=== PATIENT | female | born 1970 | race American Indian/Alaskan Native ===

== ENCOUNTER 2017-04-01 08:46 | Outpatient (CLI) | payer BC ==
--- NOTE | 2017-04-01 15:30 | Mammography Report ---
BILATERAL DIGITAL SCREENING MAMMOGRAM with CAD: 04/01/17 08:46:00 CLINICAL: Routine screening. COMPARISON:None available. FINDINGS: The breasts are heterogeneously dense, which may obscure small masses. No mass, architectural distortion or suspicious calcifications. IMPRESSION: No mammographic evidence of malignancy. BI-RADS CATEGORY: 1 - - Negative RECOMMENDATION: Routine mammographic screening in one year. COMMENT: Patient follow-up letters are generated by our [employer] application.
== END 2017-04-01 08:47 | disposition home or self-care (01) ==
LOC: SPVWC 08:46
PROVIDERS: ATTEND Obstetrics & Gynecology
DX: Z12.31 Encounter for screening mammogram for malignant neoplasm of breast (principal)
CPT/HCPCS: 77067; G0202

== ENCOUNTER 2018-04-27 14:11 | Outpatient (CLI) | payer BC ==
--- NOTE | 2018-04-29 16:45 | Mammography Report ---
BILATERAL DIGITAL SCREENING MAMMOGRAM with CAD: 04/27/18 14:11:00 CLINICAL: Routine screening. COMPARISON:04/01/17 FINDINGS: The breasts are heterogeneously dense, which may obscure small masses. A right asymmetry on the MLO view requires additional imaging. No architectural distortion or suspicious calcifications.The left breast is negative. IMPRESSION: Right asymmetry requiring further workup. BI-RADS CATEGORY: 0 -- Additional Imaging Evaluation Required RECOMMENDATION: Recall for right mediolateral , exaggerated CC and spot MLO views and right breast ultrasound if needed. ACR BI-RADS MAMMOGRAPHIC CODES: 0 = Needs additional imaging evaluation; 1 = Negative; 2 = Benign; 3 = Probably benign; 4 = Suspicious; 5 = Malignant; 6 = Known biopsy-proven malignancy COMMENT: 1. Dense breast tissue, i.e., adenosis, fibrocystic changes, etc., may obscure an underlying neoplasm. 2. Approximately 10% of cancers are not detected with mammography. 3. A negative mammography report should not delay biopsy if a clinically suspicious mass is present. COMMENT: Patient follow-up letters are generated via our [employer] application.
== END 2018-04-27 14:12 | disposition home or self-care (01) ==
LOC: SPVWC 14:11
PROVIDERS: ATTEND Obstetrics & Gynecology
DX: Z12.31 Encounter for screening mammogram for malignant neoplasm of breast (principal)
CPT/HCPCS: 77067

== ENCOUNTER 2018-05-17 12:11 | Outpatient (CLI) | payer BC ==
--- NOTE | 2018-05-17 13:38 | Mammography Report ---
RIGHT DIGITAL DIAGNOSTIC MAMMOGRAM and RIGHT BREAST ULTRASOUND: 05/17/18 CLINICAL: Recall for asymmetry. COMPARISON:04/27/18creening FINDINGS: ML, spot compression MLOand exaggerated CC views without and with spot compression were performed. A less prominent asymmetry is identified on the lateral view but the other views are negative. Ultrasound of the right breast (including all four quadrants and the retroareolar area) was performed and demonstrated no mass, cyst or shadowing to correlate with the mammographic asymmetry. A benign cyst at 10 o'clock 3 cm from the nipple measures 4 x 3 x 2 mm. IMPRESSION: A probably benign mammographic asymmetry identified only in one view with a negative ultrasound. BI-RADS CATEGORY: 3-Probably Benign RECOMMENDATION: 6 month followup right mammogram and ultrasound if needed. ACR BI-RADS MAMMOGRAPHIC CODES: 0 = Needs additional imaging evaluation; 1 = Negative; 2 = Benign; 3 = Probably benign; 4 = Suspicious; 5 = Malignant; 6 = Known biopsy-proven malignancy COMMENT: 1. Dense breast tissue, i.e., adenosis, fibrocystic changes, etc., may obscure an underlying neoplasm. 2. Approximately 10% of cancers are not detected with mammography. 3. A negative mammography report should not delay biopsy if a clinically suspicious mass is present. COMMENT: Patient follow-up letters are generated via our [employer] application.
--- NOTE | 2018-05-17 13:43 | Ultrasound Report ---
RIGHT DIGITAL DIAGNOSTIC MAMMOGRAM and RIGHT BREAST ULTRASOUND: 05/17/18 CLINICAL: Recall for asymmetry. COMPARISON:04/27/18 screening FINDINGS: ML, spot compression MLO and exaggerated CC views without and with spot compression were performed. A less prominent asymmetry is identified on the lateral view but the other views are negative. Ultrasound of the right breast (including all four quadrants and the retroareolar area) was performed and demonstrated no mass, cyst or shadowing to correlate with the mammographic asymmetry. A benign cyst at 10 o'clock 3 cm from the nipple measures 4 x 3 x 2 mm. IMPRESSION: A probably benign mammographic asymmetry identified only on one view with a negative ultrasound. BI-RADS CATEGORY: 3-Probably Benign RECOMMENDATION: 6 month followup right mammogram and ultrasound if needed. ACR BI-RADS MAMMOGRAPHIC CODES: 0 = Needs additional imaging evaluation; 1 = Negative; 2 = Benign; 3 = Probably benign; 4 = Suspicious; 5 = Malignant; 6 = Known biopsy-proven malignancy
== END 2018-05-17 12:12 | disposition home or self-care (01) ==
LOC: SPVWC 12:11
PROVIDERS: ATTEND Obstetrics & Gynecology
DX: N64.89 Other specified disorders of breast (principal)

== ENCOUNTER 2019-01-04 13:09 | Outpatient (CLI) | payer BC ==
--- NOTE | 2019-01-04 14:31 | Mammography Report ---
RIGHT DIGITAL DIAGNOSTIC MAMMOGRAM with CAD: 01/04/19 13:09:00 CLINICAL: Follow-up asymmetry. COMPARISON:05/17/18 and 04/27/18 FINDINGS: The previously described asymmetry is no longer identified. The breast is heterogeneously dense, which may obscure small masses. No mass, architectural distortion or suspicious calcifications. IMPRESSION: No mammographic evidence of malignancy. BI-RADS CATEGORY: 1 - - Negative RECOMMENDATION: Return to routine mammographic screening. ACR BI-RADS MAMMOGRAPHIC CODES: 0 = Needs additional imaging evaluation; 1 = Negative; 2 = Benign; 3 = Probably benign; 4 = Suspicious; 5 = Malignant; 6 = Known biopsy-proven malignancy COMMENT: 1. Dense breast tissue, i.e., adenosis, fibrocystic changes, etc., may obscure an underlying neoplasm. 2. Approximately 10% of cancers are not detected with mammography. 3. A negative mammography report should not delay biopsy if a clinically suspicious mass is present. COMMENT: Patient follow-up letters are generated by our [employer] ([employer] application.
== END 2019-01-04 13:10 | disposition home or self-care (01) ==
LOC: SPVWC 13:09
PROVIDERS: ATTEND Obstetrics & Gynecology
DX: N64.89 Other specified disorders of breast (principal)